=== PATIENT | female | born 1980 | race Caucasian/White ===

== ENCOUNTER 2020-08-26 03:38 | Emergency (ER) | payer SELFPAY ==
[~2020-08-26] VITALS: Ht 162.6 cm; Wt 82.0 kg
[2020-08-26] MEDS ORDERED: diphenhydrAMINE 50MG/ML VIAL (J1200) IM ONE (03:45)
[2020-08-26] MEDS ORDERED: OLANZapine INTRAMUSCULAR 10MG VIAL IM ONE (03:45)
[2020-08-26] MEDS ORDERED: LORazepam 2 MG/ML VIAL IM STA (04:06)
[2020-08-26] MEDS ORDERED: LORazepam 2 MG/ML VIAL As Ordered ONE (04:08)
[2020-08-26 05:55] LABS: HEMATOCRIT 45.4 % (36.0-47.0); HEMOGLOBIN 15.3 g/dl (12.0-15.5); MEAN CORPUSCULAR HEMOGLOBIN 32.2 pg (27.0-33.0); MEAN CORPUSCULAR HGB CONC 33.7 g/dl (32.0-36.5); MEAN CORPUSCULAR VOLUME 95.6 fl (80.0-96.0); PLATELET COUNT, AUTOMATED 253 10^3/uL (150-450); RED BLOOD COUNT 4.75 10^6/uL (4.00-5.40); WHITE BLOOD COUNT 6.2 10^3/uL (4.0-10.0)
[2020-08-26 06:17] LABS: AMPHETAMINES LEVEL URINE NEGATIVE (NEGATIVE); BARBITURATES URINE NEGATIVE (NEGATIVE); BENZODIAZEPINES URINE NEGATIVE (NEGATIVE); CANNABINOIDS URINE POSITIVE (NEGATIVE); COCAINE METABOLITE URINE POSITIVE (NEGATIVE); METHADONE URINE NEGATIVE (NEGATIVE); OPIATES URINE NEGATIVE (NEGATIVE); PHENCYCLIDINE URINE NEGATIVE (NEGATIVE)
[2020-08-26 06:22] LABS: HCG, SERUM QUALITATIVE NEGATIVE (NEGATIVE)
[2020-08-26 06:24] LABS: ACETAMINOPHEN LEVEL < 2.0 UG/ML (10.0-30.0); ALBUMIN 4.1 GM/DL (3.2-5.2); ALT/SGPT 43 U/L (12-78); BILIRUBIN,DIRECT 0.1 MG/DL (0.0-0.2); BILIRUBIN,TOTAL 0.4 MG/DL (0.2-1.0); BLOOD UREA NITROGEN 4 MG/DL (7-18); CALCIUM LEVEL 8.4 MG/DL (8.5-10.1); CARBON DIOXIDE LEVEL 26 MEQ/L (21-32); CHLORIDE LEVEL 112 MEQ/L (98-107); CREATININE FOR GFR 0.84 MG/DL (0.55-1.30); ETHYL ALCOHOL (ETHANOL) 0.176 % (0.000-0.010); GLOMERULAR FILTRATION RATE > 60.0 (>58); GLUCOSE, FASTING 87 MG/DL (70-100); POTASSIUM SERUM 3.9 MEQ/L (3.5-5.1); SALICYLATE LEVEL 4.3 MG/DL (5.0-30.0); SODIUM LEVEL 147 MEQ/L (136-145); TOTAL PROTEIN 7.4 GM/DL (6.4-8.2)
[2020-08-26 14:53] VITALS: BP 144/70
== END 2020-08-26 15:02 | disposition home or self-care (01) ==
LOC: M ED 03:38
DX: F10.120 Alcohol abuse with intoxication, uncomplicated (principal); R45.851 Suicidal ideations
CPT/HCPCS: 80048; 80076; 80143; 80307; 82077; 84443; 84703; 85027; 96374; 96375; 99285; J1200; J2060

== ENCOUNTER 2021-08-16 08:13 | Emergency (ER) | payer OTHER, SELFPAY ==
[~2021-08-16] VITALS: Ht 162.6 cm; Wt 91.8 kg
[2021-08-16] MEDS ORDERED: TRAZ-257 (08:30)
[2021-08-16] MEDS ORDERED: VENL75CA47 (08:30)
[2021-08-16] MEDS ORDERED: GABA-282 (08:30)
[2021-08-16] MEDS ORDERED: BENZONATATE 100MG CAPSULE PO ONE (15:10)
[2021-08-16] MEDS ORDERED: NS 1,000 ML IV ONE (15:10)
[2021-08-16] MEDS ORDERED: KETOROLAC 30 MG/ML 1ML VIAL IV ONE (15:10)
[2021-08-16] MEDS ORDERED: methylPREDNISolone 125MG 2ML VIAL IV ONE (15:10)
[2021-08-16] MEDS: ALBUTEROL 90 MCG/ACT 8GM HFA INHALER INH SCH ×3 (15:59→17:09)
[2021-08-16 16:17] LABS: VENOUS BASE EXCESS 0.6 (-2.0-2.0); VENOUS HCO3 26.8 MEQ/L (23.0-27.0); VENOUS PARTIAL PRESSURE CO2 48.5 mmHg (38.0-50.0); VENOUS PARTIAL PRESSURE O2 41.6 mmHg (30.0-50.0); VENOUS STANDARD HCO3 24.4 MEQ/L; VENOUS TOTAL CO2 28.3 MEQ/L (24.0-28.0)
[2021-08-16 16:22] LABS: BASO % 0.2 % (0.0-1.0); EOS % 0.1 % (0.0-3.0); HEMATOCRIT 45.1 % (36.0-47.0); HEMOGLOBIN 15.4 g/dl (12.0-15.5); LYMPH # 1.1 10^3/uL (1.5-5.0); LYMPH % 6.7 % (24.0-44.0); MEAN CORPUSCULAR HEMOGLOBIN 32.4 pg (27.0-33.0); MEAN CORPUSCULAR HGB CONC 34.1 g/dl (32.0-36.5); MEAN CORPUSCULAR VOLUME 94.7 fl (80.0-96.0); MONO # 1.2 10^3/uL (0.0-0.8); MONO % 7.5 % (2.0-8.0); NEUTROPHILS # 13.7 10^3/uL (1.5-8.5); NEUTROPHILS % 85.1 % (36.0-66.0); PLATELET COUNT, AUTOMATED 260 10^3/uL (150-450); RED BLOOD COUNT 4.76 10^6/uL (4.00-5.40); WHITE BLOOD COUNT 16.2 10^3/uL (4.0-10.0)
[2021-08-16 17:03] LABS: ALBUMIN 3.9 GM/DL (3.2-5.2); BILIRUBIN,DIRECT 0.2 MG/DL (0.0-0.2); BILIRUBIN,TOTAL 0.8 MG/DL (0.2-1.0); TOTAL PROTEIN 7.5 GM/DL (6.4-8.2)
[2021-08-16] MEDS ORDERED: PRED20TA PO (17:29)
[2021-08-16] MEDS ORDERED: BENZ200C70 PO (17:29)
[2021-08-16] MEDS ORDERED: AZIT-12 PO (17:29)
[2021-08-16] MEDS ORDERED: PROAAER10 INH (17:29)
[2021-08-16 17:39] VITALS: BP 143/65
== END 2021-08-16 17:55 | disposition home or self-care (01) ==
LOC: M ED 08:13
DX: R07.9 Chest pain, unspecified (principal); R06.2 Wheezing; D72.829 Elevated white blood cell count, unspecified; F17.200 Nicotine dependence, unspecified, uncomplicated; Z88.0 Allergy status to penicillin; Z79.51 Long term (current) use of inhaled steroids; Z79.899 Other long term (current) drug therapy
CPT/HCPCS: 71046; 80047; 80076; 82803; 83690; 84702; 85025; 87486; 87581; 87633; 87798; 93005; 94640; 96374; 99284; J1885; J2930

== ENCOUNTER 2022-02-22 02:44 | Emergency (ER) | payer OTHER ==
[~2022-02-22 02:44] MED LIST: AZIT-12 PO; BENZ200C70 PO; GABA-282 PO; PRED20TA PO; PROAAER10 INH; TRAZ-257; VENL75CA47
[2022-02-22 03:48] LABS: HEMATOCRIT 47.4 % (36.0-47.0); HEMOGLOBIN 15.6 g/dl (12.0-15.5); MEAN CORPUSCULAR HGB CONC 32.9 g/dl (32.0-36.5); MEAN CORPUSCULAR VOLUME 94.2 fl (80.0-96.0); PLATELET COUNT, AUTOMATED 306 10^3/uL (150-450); RED BLOOD COUNT 5.03 10^6/uL (4.00-5.40); WHITE BLOOD COUNT 12.2 10^3/uL (4.0-10.0)
[2022-02-22 04:12] LABS: ETHYL ALCOHOL (ETHANOL) 0.114 % (0.000-0.010)
[2022-02-22 04:13] LABS: BILIRUBIN,DIRECT < 0.1 MG/DL (<0.4)
[2022-02-22 04:14] LABS: ACETAMINOPHEN LEVEL < 2.0 UG/ML (10.0-20.0); ALBUMIN 4.3 G/DL (3.2-5.2); ALKALINE PHOSPHATASE 80 U/L (46-116); ALT/SGPT 26 U/L (7.0-40); AST/SGOT 26 U/L (<34); BILIRUBIN,TOTAL 0.4 MG/DL (0.3-1.2); BLOOD UREA NITROGEN 7 MG/DL (9-23); CALCIUM LEVEL 8.7 MG/DL (8.5-10.1); CARBON DIOXIDE LEVEL 23 MMOL/L (20-31); CHLORIDE LEVEL 107 MMOL/L (98-107); GLOMERULAR FILTRATION RATE > 60.0 (>58); GLUCOSE, FASTING 102 MG/DL (60-100); POTASSIUM SERUM 4.5 MMOL/L (3.5-5.1); SALICYLATE LEVEL < 3.0 MG/DL (<30); SODIUM LEVEL 142 MMOL/L (136-145); TOTAL PROTEIN 7.7 G/DL (5.7-8.2)
[2022-02-22 04:17] LABS: THYROID STIMULATING HORMONE 2.289 uIU/ML (0.55-4.78)
[2022-02-22 04:21] LABS: RSV AMPLIFICATION NEGATIVE (NEGATIVE)
[2022-02-22] MEDS ORDERED: ACETAMINOPHEN TAB 650MG DOSE (2X325MG) PO ONE (08:20)
[2022-02-22] MEDS ORDERED: LORazepam 1 MG TAB PO STA (08:40)
[2022-02-22] MEDS ORDERED: EFFE150C2 PO (09:24)
[2022-02-22 11:40] LABS: APPEARANCE, URINE MANUAL CLOUDY (CLEAR); BILIRUBIN, URINE MANUAL NEGATIVE (NEGATIVE); BLOOD URINE MANUAL NEGATIVE (NEGATIVE); COLOR, URINE MANUAL YELLOW (YELLOW); GLUCOSE, URINE (UA) MANUAL NEGATIVE (NEGATIVE); KETONE, URINE MANUAL NEGATIVE (NEGATIVE); LEUKOCYTE ESTERASE, URINE MAN POSITIVE (NEGATIVE); NITRITE, URINE MANUAL POSITIVE (NEGATIVE); PROTEIN, URINE MANUAL NEGATIVE (NEGATIVE); UROBILINOGEN, URINE MANUAL NORMAL (NORMAL)
[2022-02-22 12:03] LABS: BARBITURATES URINE NEGATIVE (NEGATIVE); BENZODIAZEPINES URINE NEGATIVE (NEGATIVE); METHADONE URINE NEGATIVE (NEGATIVE); OPIATES URINE NEGATIVE (NEGATIVE); PHENCYCLIDINE URINE NEGATIVE (NEGATIVE)
[2022-02-22 12:04] LABS: BACTERIA, URINE LARGE AMOUNT; SQUAMOUS EPITHELIAL CELL URINE SMALL AMOUNT /hpf (SMALL AMT); WBC, URINE TNTC /hpf (0-3)
[2022-02-22 12:05] LABS: HYALINE CAST, URINE NONE SEEN /lpf (0-1)
[2022-02-22 12:10] LABS: AMPHETAMINES LEVEL URINE POSITIVE (NEGATIVE); CANNABINOIDS URINE POSITIVE (NEGATIVE); COCAINE METABOLITE URINE POSITIVE (NEGATIVE)
[2022-02-22 13:25] VITALS: BP 141/91
== END 2022-02-22 13:31 | disposition home or self-care (01) ==
LOC: M ED 02:44
DX: F10.120 Alcohol abuse with intoxication, uncomplicated (principal); F43.9 Reaction to severe stress, unspecified; S09.90XA Unspecified injury of head, initial encounter; S02.2XXA Fracture of nasal bones, initial encounter for closed fracture; R45.850 Homicidal ideations; F32.A Depression, unspecified; F41.9 Anxiety disorder, unspecified; J45.909 Unspecified asthma, uncomplicated; Z88.0 Allergy status to penicillin